=== PATIENT | male | born 1995 | race African-American/Black ===

== ENCOUNTER 2017-03-17 12:40 | Emergency (ER) | payer SELFPAY, OTHER | END 2017-03-17 13:19 | disposition home or self-care (01) | LOC: ER 12:40 | DX: G89.29 Other chronic pain (principal); R10.13 Epigastric pain; K59.00 Constipation, unspecified | CPT/HCPCS: 99283 ==

== ENCOUNTER 2017-03-17 21:57 | Inpatient (IN) | payer SELFPAY, OTHER ==
[2017-03-17] MEDS: IOHEXOL 300 MG/ML 100ML VIAL. IV (00:11)
[2017-03-17 22:54] LABS: ADD MAN DIFF? NO
[2017-03-17 22:56] LABS: BASO # 0.1 x10^3/uL (0.0-0.2); BASO % 1 % (0-3); EOS % 0 % (0-3); HEMATOCRIT 48.5 % (39.0-53.0); HEMOGLOBIN 16.3 g/dL (13.0-17.5); LYMPH # 1.4 x10^3/uL (1.0-4.8); LYMPH % 16 % (24-48); MEAN CORPUSCULAR HEMOGLOBIN 29 pg (25-35); MEAN CORPUSCULAR HGB CONC 34 g/dL (31-37); MEAN CORPUSCULAR VOLUME 86 fL (79-100); MONO # 0.6 x10^3/uL (0.0-1.1); MONO % 7 % (0-9); NEUT # 6.6 x10^3uL (1.8-7.7); NEUT % 77 % (31-73); PLATELET COUNT 257 x10^3/uL (140-400); RED BLOOD COUNT 5.64 x10^6/uL (4.30-5.70); RED CELL DISTRIBUTION WIDTH 13.6 % (11.5-14.5); WHITE BLOOD COUNT 8.6 x10^3/uL (4.0-11.0)
[2017-03-17 22:57] LABS: BILIRUBIN,URINE NEGATIVE (NEG); CLARITY,URINE CLEAR; COLOR,URINE YELLOW; GLUCOSE,URINE NEGATIVE (NEG); NITRITE,URINE NEGATIVE (NEG); PH,URINE 6.5; PROTEIN,URINE NEGATIVE (NEG-TRACE); UROBILINOGEN,URINE 0.2 mg/dL (0.2 mg/dL)
[2017-03-17 23:03] LABS: BACTERIA,URINE 0 /HPF (0-FEW); RBC,URINE 0 /HPF (0-2); SQUAMOUS EPITHELIAL CELL,UR OCC /LPF; WBC,URINE 0 /HPF (0-4)
[2017-03-17] MEDS: LIDO:MAALOX:DONNATAL 1:1:1 15 ML SINGLE DOSE SWSW (23:10)
[2017-03-17] MEDS: ONDANSETRON PF 4 MG/2 ML VIAL. IV (23:11)
[2017-03-17] MEDS: PANTOPRAZOLE IV PUSH 40 MG VIAL. IVP (23:11)
[2017-03-17] MEDS: fentaNYL PF VIAL 100 MCG/2 ML VIAL IV (23:11)
[2017-03-17] MEDS: IV NORMAL SALINE 1000ML BAG 1,000 ML IV (23:14)
[2017-03-17 23:19] LABS: ANION GAP 11 (6-14); BLOOD UREA NITROGEN 8 mg/dL (8-26); BUN/CREATININE RATIO 8 (6-20); CALCIUM 9.6 mg/dL (8.5-10.1); CARBON DIOXIDE 29 mmol/L (21-32); CHLORIDE 102 mmol/L (98-107); GFR 116.5; GLUCOSE 94 mg/dL (70-99); POTASSIUM 3.7 mmol/L (3.5-5.1); SODIUM 142 mmol/L (136-145)
[2017-03-17 23:25] LABS: ALBUMIN 4.9 g/dL (3.4-5.0); ALBUMIN/GLOBULIN RATIO 1.4 (1.0-1.7); ALK PHOS 112 U/L (46-116); ALT (SGPT) 18 U/L (16-63); AST (SGOT) 18 U/L (15-37); LIPASE 89 U/L (73-393); MAGNESIUM 2.1 mg/dL (1.8-2.4); TOTAL BILIRUBIN 0.9 mg/dL (0.2-1.0); TOTAL PROTEIN 8.4 g/dL (6.4-8.2)
[2017-03-17] MEDS ORDERED: CONTRAST GIVEN MC (23:45)
[2017-03-18] MEDS: fentaNYL PF VIAL 100 MCG/2 ML VIAL IV (00:44)
[2017-03-18] MEDS: FAMOTIDINE 20 MG TABLET. PO (00:44)
[2017-03-18] MEDS ORDERED: fentaNYL PF VIAL 100 MCG/2 ML VIAL IV (01:00)
[2017-03-18] MEDS ORDERED: ONDANSETRON PF 4 MG/2 ML VIAL. IV ×2 (01:00→09:15)
[2017-03-18] MEDS: IV NORMAL SALINE 1000ML BAG 1,000 ML IV ×2 (01:30→03:21)
[2017-03-18] MEDS ORDERED: oxyCODONE/APAP 5/325 1 TAB TABLET PO (09:15)
[2017-03-18] MEDS: PANTOPRAZOLE 40 MG TABLET.DR. PO (10:40)
[2017-03-18 12:28] LABS: SEDIMENTATION RATE 3 (0-15)
[2017-03-18] MEDS: CIPROFLOXACIN 400MG PREMIX 200 ML IV (12:32)
[2017-03-18] MEDS ORDERED: LACTOBACILLUS RHAMNOSUS GG 1 CAPSULE. PO (21:00)
== END 2017-03-18 17:55 | disposition home or self-care (01) | DRG 391 ==
LOC: 4 NORTH 03-18 01:31 → ER 21:57
DX: K52.9 Noninfective gastroenteritis and colitis, unspecified (principal); K55.069 Acute infarction of intestine, part and extent unspecified
CPT/HCPCS: 36415; 74177; 80053; 81001; 83690; 83735; 85025; 85651; 96361; 96365; 96375; 96376; 99285-25; C9113; J0744; J1956; J2405; J3010; J3490; J7030; Q9967

== ENCOUNTER 2017-05-30 10:06 | Emergency (ER) | payer SELFPAY | END 2017-05-30 11:45 | disposition home or self-care (01) | LOC: ER 10:06 | DX: B02.9 Zoster without complications (principal) | CPT/HCPCS: 87252; 99283 ==

== ENCOUNTER 2017-09-24 03:54 | Emergency (ER) | payer SELFPAY | END 2017-09-24 04:25 | disposition home or self-care (01) | LOC: ER 03:54 | DX: K59.00 Constipation, unspecified (principal); R14.0 Abdominal distension (gaseous) | CPT/HCPCS: 99283 ==

== ENCOUNTER → 2018-03-14 | Outpatient (CLI) | payer BC ==
[2017-09-24 03:55] VITALS: BP 144/70
[~2018-03-14] MED LIST: HYOS0.1265 SL; LEVO500T59 PO; MAGN296S9 PO; METR500T PO; SENN-121 PO; SINCALIDE 1.51 MCG in IV NORMAL SALINE 50ML 30 ML IV ONE; VALA1000 PO
--- NOTE | 2018-03-14 08:23 | RAD ---
ABDOMEN LTD History: Epigastric pain, nausea Comparison: None. Findings: Multiple sonographic images of the abdomen are submitted. Hepatic echotexture is within normal limits, no focal abnormality demonstrated. Gallbladder is present without intraluminal abnormality, wall thickening, pericholecystic fluid. Common bile duct is within normal limits at 0.2 cm. There is segmental visualization of the inferior vena cava. Abdominal aortic caliber is within normal limits. The right kidney measured 10.9 x 5.2 x 3.6 cm, no hydronephrosis. There is no abnormality of the visualized pancreas. Impression: 1. No significant abnormality is demonstrated. Electronically signed by: Sergei Aldana MD (03/14/2018 8:19 AM) [id number]
--- NOTE | 2018-03-14 10:26 | RAD ---
Exam performed: Nuclear medicine hepatobiliary scan. History: Chronic intermittent abdominal pain COMPARISON: None available Following intravenous administration of 5.5 mCi of Choletec tagged with Tc, sequential gamma camera images of the right upper quadrant of the abdomen were obtained. There is prompt accumulation of radionuclide in the liver which appears to be unremarkable Prompt accumulation in the central intrahepatic biliary radicals, gallbladder, common bile duct and small bowel is noted. Patient was also infused with 1.5mcg of CCK and gallbladder ejection fraction was calculated which measures 86%. Impression: Normal nuclear hepatobiliary scan with gallbladder ejection fraction measuring 86%. Electronically signed by: Ye Rossi MD (03/14/2018 10:22 AM) [id number]
== END | disposition home or self-care (01) ==
LOC: US 07:06
PROVIDERS: ATTEND Internal Medicine Gastroenterology
DX: R10.13 Epigastric pain (principal); R11.0 Nausea
CPT/HCPCS: 76705; 78227; A9537; J2805

== ENCOUNTER → 2018-05-23 | Outpatient (CLI) | payer BC ==
[2017-09-24 03:55] VITALS: BP 144/70
[~2018-05-23] MED LIST changes: -SINCALIDE 1.51 MCG in IV NORMAL SALINE 50ML 30 ML IV ONE
--- NOTE | 2018-05-23 13:17 | RAD ---
Gastric Emptying Study 05/23/2018 Indication: Epigastric pain Procedure: Anterior and posterior projection static images are obtained over the stomach following oral administration of 2 mCi of 99 M technetium sulfur colloid in a solid meal (egg and toast). Time points include an immediate baseline, and 1, 2, 3, and 4 hours post ingestion. Findings: There is progressive emptying of the stomach on sequential images. Percentage retention at... One hour is 4% (normal 34.8-91%). Two hours 17% (normal 2.7-60%). Three hours 5% (normal 0.5-28%). Four hours 0% (normal 0-10%). Impression: Normal 4 hour protocol gastric emptying study. Consensus Recommendations for Gastric Emptying Scintigraphy: A Joint Report of the [employer] and the Society of Nuclear Medicine: J. Nucl. Med. Technol. May 2007 vol. 36 no. 1 44-54 Grading for severity of delayed GE based on the 4-h value: grade 1 (mild): 11?20% retention at 4 h grade 2 (moderate): 21?35% retention at 4 h grade 3 (severe): 36?50% retention at 4 h grade 4 (very severe): >50% retention at 4 h. Electronically signed by: Erik Rondon MD (05/23/2018 1:14 PM) [id number]
== END | disposition home or self-care (01) ==
LOC: NM 08:09
PROVIDERS: ATTEND Internal Medicine Gastroenterology
DX: R10.13 Epigastric pain (principal)
CPT/HCPCS: 78264; A9541